=== PATIENT | male | born 1995 | race Caucasian/White ===

== ENCOUNTER 2016-03-29 08:12 | Emergency (ER) | payer OTHER ==
[~2016-03-29] VITALS: Ht 177.8 cm; Wt 104.0 kg
[2016-03-29 08:16] VITALS: TEMP 99.1
[2016-03-29] MEDS ORDERED: [UNRECOGNIZED DRUG - REMARK] (08:22)
[2016-03-29] MEDS ORDERED: [UNRECOGNIZED DRUG - OTHER] (08:23)
[2016-03-29 10:31] LABS: INFLUENZA B NEGATIVE
[2016-03-29] MEDS ORDERED: TAMIFLU 75MG75 MG PO (10:43)
[2016-03-29 12:50] LABS: HIV 1/2 Antibodies Non-Reactive; HIV-1p24 Antigen Non-Reactive
[2016-03-29 13:28] VITALS: BP 122/69; PULSE 80
== END 2016-03-29 13:30 | disposition home or self-care (01) ==
LOC: COL.ER 08:12
PROVIDERS: Emergency Medicine
DX: J09.X2 Influenza due to identified novel influenza A virus with other respiratory manifestations (principal)